=== PATIENT | male | born 1955 | race Caucasian/White ===

== ENCOUNTER 2022-02-20 16:33 | Emergency (ER) | payer OTHER | END 2022-02-20 19:41 | disposition home or self-care (01) | LOC: FER 16:33 | DX: S92.111A Displaced fracture of neck of right talus, initial encounter for closed fracture (principal); K21.9 Gastro-esophageal reflux disease without esophagitis; E03.9 Hypothyroidism, unspecified; F17.210 Nicotine dependence, cigarettes, uncomplicated; Z79.890 Hormone replacement therapy; Z79.899 Other long term (current) drug therapy; Z88.1 Allergy status to other antibiotic agents; W10.9XXA Fall (on) (from) unspecified stairs and steps, initial encounter; Y92.009 Unspecified place in unspecified non-institutional (private) residence as the place of occurrence of the external cause | CPT/HCPCS: 73610; 73630 ==